=== PATIENT | female | born 1990 | race Asian ===

== ENCOUNTER → 2018-05-30 | Outpatient (CLI) | payer SELFPAY ==
[~2018-05-30] MED LIST: IBUP60TA PO; MAPA500T2 PO; PREN29TA4 PO
== END ==
LOC: M LAB 11:48
PROVIDERS: ATTEND Advanced Practice Midwife
DX: O02.1 Missed abortion (principal)

== ENCOUNTER → 2018-10-06 | Outpatient (CLI) | payer OTHER ==
[~2018-10-06] MED LIST changes: +IBUP600T42 PO; -IBUP60TA PO
== END ==
LOC: M LAB 12:13
PROVIDERS: ATTEND Advanced Practice Midwife
DX: O20.0 Threatened abortion (principal); Z3A.00 Weeks of gestation of pregnancy not specified

== ENCOUNTER → 2018-10-08 | Outpatient (CLI) | payer OTHER | LOC: M LAB 12:22 | PROVIDERS: ATTEND Advanced Practice Midwife | DX: O20.0 Threatened abortion (principal) ==

== ENCOUNTER → 2018-11-02 | Outpatient (CLI) | payer OTHER | LOC: M LAB 13:15 | PROVIDERS: ATTEND Advanced Practice Midwife | DX: O03.9 Complete or unspecified spontaneous abortion without complication (principal) ==

== ENCOUNTER → 2018-11-13 | Outpatient (CLI) | payer OTHER | LOC: M LAB 14:35 | PROVIDERS: ATTEND Advanced Practice Midwife | DX: O03.9 Complete or unspecified spontaneous abortion without complication (principal) ==

== ENCOUNTER → 2018-11-16 | Outpatient (CLI) | payer OTHER ==
[2018-11-16 17:44] LABS: FREE T4 1.09 NG/DL (0.76-1.46); THYROID STIMULATING HORMONE 0.802 uIU/ML (0.358-3.740)
[2018-11-21 11:16] LABS: PTT LUPUS TYPE ANTICOAG SCREEN 0.8 (0-1.2)
[2018-11-22 14:34] LABS: ANTI DS-DNA AB <1:10 titer (.); ANTI THROMBIN 3 FUNCT ACTIVITY 114 % (75-135); CARDIOLIPIN IGA ANTIBODY <9 APL U/mL (0-11); CARDIOLIPIN IGG ANTIBODY <9 GPL U/mL (0-14); CARDIOLIPIN IGM ANTIBODY <9 MPL U/mL (0-12); PROTEIN C FUNCTIONAL ACTIVITY 132 % (73-180); PROTEIN S FUNCTIONAL ACTIVITY 82 % (63-140); SSA SJOGRENS A <0.2 AI (0.0-0.9); SSB SJOGRENS B <0.2 AI (0.0-0.9)
== END ==
LOC: M SMT 15:49
PROVIDERS: ATTEND Obstetrics & Gynecology
DX: N96 Recurrent pregnancy loss (principal)

== ENCOUNTER → 2019-08-02 | Outpatient (REF) | payer OTHER ==
[~2019-08-02] MED LIST changes: +PROG1CAP9 PO
[2019-08-02 12:37] LABS: HEMATOCRIT 38.5 % (36.0-47.0); HEMOGLOBIN 12.8 g/dl (12.0-15.5); MEAN CORPUSCULAR HEMOGLOBIN 31.9 pg (27.0-33.0); MEAN CORPUSCULAR HGB CONC 33.2 g/dl (32.0-36.5); PLATELET COUNT, AUTOMATED 224 10^3/uL (150-450); RED BLOOD COUNT 4.01 10^6/uL (4.00-5.40); WHITE BLOOD COUNT 6.7 10^3/uL (4.0-10.0)
[2019-08-02 14:06] LABS: CHLAMYDIA DNA AMPLIFICATION NEGATIVE (NEGATIVE); GC DNA AMPLIFICATION NEGATIVE (NEGATIVE)
[2019-08-03 09:10] LABS: HEPATITIS B SURFACE ANTIGEN NEGATIVE (NEGATIVE); HEPATITIS C VIRUS ABY INDEX < 0.0 INDEX (<0.8); HIV 1&2 SCREEN CENTAUR NEGATIVE (NEGATIVE); RUBELLA IgG QUALITATIVE IMMUNE (IMMUNE)
== END ==
LOC: M PLALAB 09:54
PROVIDERS: ATTEND Specialist
DX: Z34.81 Encounter for supervision of other normal pregnancy, first trimester (principal)

== ENCOUNTER 2019-08-03 09:34 | Emergency (ER) | payer OTHER ==
[~2019-08-03] VITALS: Ht 165.1 cm; Wt 70.6 kg
[~2019-08-03 09:34] MED LIST changes: -PROG1CAP9 PO
[2019-08-03] MEDS ORDERED: PROG1CAP9 PO (09:42)
[2019-08-03 10:22] LABS: BASO % 0.5 % (0.0-1.0); EOS # 0.1 10^3/uL (0.0-0.5); EOS % 0.8 % (0.0-3.0); HEMOGLOBIN 13.3 g/dl (12.0-15.5); LYMPH # 1.8 10^3/uL (1.5-5.0); LYMPH % 30.1 % (24.0-44.0); MEAN CORPUSCULAR HEMOGLOBIN 31.8 pg (27.0-33.0); MEAN CORPUSCULAR HGB CONC 33.3 g/dl (32.0-36.5); MEAN CORPUSCULAR VOLUME 95.7 fl (80.0-96.0); MONO # 0.5 10^3/uL (0.0-0.8); MONO % 8.1 % (0.0-5.0); NEUTROPHILS # 3.6 10^3/uL (1.5-8.5); NEUTROPHILS % 60.2 % (36.0-66.0); PLATELET COUNT, AUTOMATED 230 10^3/uL (150-450); RED BLOOD COUNT 4.18 10^6/uL (4.00-5.40); WHITE BLOOD COUNT 5.9 10^3/uL (4.0-10.0)
--- NOTE | 2019-08-03 10:47 | REP ---
First trimester obstetric ultrasound for vaginal bleeding: The the studies performed transabdominal, endovaginal and Doppler ultrasound assessment. There is an intrauterine gestational sac with a pole. The heart rate is 140 beats per minute. The gestational sac. [place]-rump length is a 0.8 cm. This corresponds to a gestational age of 6 weeks 6 days. MARLIN is 03/22/2020. Gestational age by LMP is 7 weeks 1 day/MARLIN 03/20/2020. There is a yolk sac measuring 5.9 mm in diameter. There is no subchorionic hematoma. The right ovary is normal size measuring 3.3 x 1.5 cm and is otherwise unremarkable. There is right ovarian vascular flow with the Doppler resistive index is 0.44. The left ovary is normal size measuring 3.3 by 2.0 cm. There is vascular flow in the left ovary with the Doppler resistive index of the parenchymal arteries measuring 0.45. Within the left ovary there is a hypoechoic area the measuring 1.7 x 1.4 cm, likely an hemorrhagic corpus luteum. Electronically Signed by Clayton Holden MD 08/03/2019 10:38 A
[2019-08-03 11:27] VITALS: BP 136/68
== END 2019-08-03 12:23 | disposition home or self-care (01) ==
LOC: M ED 09:34
DX: O20.8 Other hemorrhage in early pregnancy (principal); Z87.59 Personal history of other complications of pregnancy, childbirth and the puerperium; Z3A.01 Less than 8 weeks gestation of pregnancy; Z79.899 Other long term (current) drug therapy; Z79.890 Hormone replacement therapy

== ENCOUNTER → 2019-08-21 | Outpatient (CLI) | payer OTHER ==
[~2019-08-21] MED LIST changes: +PROG1CAP9 PO
--- NOTE | 2019-08-21 09:54 | REP ---
FIRST TRIMESTER ULTRASOUND: Real-time sonographic evaluation of the gravid uterus performed. There is a single living intrauterine gestation. Estimated gestational age is 9 weeks 5 days based on a crown-rump length of 29 mm, EDC 03/20/2020. Cervix is closed and measures 3.1 cm in length. heart rate 161 beats per minute. There is no subchorionic hemorrhage. No material adnexal region abnormality is seen.
== END ==
LOC: M WHC 08:47
PROVIDERS: ATTEND Advanced Practice Midwife
DX: O20.0 Threatened abortion (principal)

== ENCOUNTER → 2019-10-19 | Outpatient (CLI) | payer OTHER ==
--- NOTE | 2019-10-20 07:41 | REP ---
OBSTETRIC SONOGRAPHY: HISTORY: Supervision of , second trimester study for anatomy. FINDINGS: Scanning through the gravid uterus demonstrates a single living intrauterine gestation in a breech lie. motion is observed and heart rate is recorded at 130 beats per minute. An anterior grade 1 placenta is seen without of evidence of previa or abruption. Amniotic fluid is subjectively normal. Closed cervical length is 3.3 cm, viewed transabdominally. No extrauterine abnormalities observed. There is a small right choroid plexus cyst measuring 4 mm. No other anatomic abnormality. The following anatomic structures are identified and felt to be unremarkable: cranium, cavum, cerebellum and posterior fossa, nuchal fold, face and profile, four-chamber heart with left and right ventricular outflow tract views, diaphragm, left-sided stomach, abdominal wall cord insertion, three-vessel cord, kidneys and bladder, spine, upper and lower extremities. BIOMETRY CHART: BPD 3.9 cm = 17 weeks 6 days Head circumference 14.9 cm = 18 weeks 0 days Abdominal circumference 12.6 cm = 18 weeks 2 days Femur length 2.7 cm = 18 weeks 3 days Humeral length 2.7 cm = 18 weeks 5 days HC/AC ratio normal 1.18 Cephalic index normal 0.71 Estimated weight 231 grams, 0 pounds 8 ounces, 52nd percentile for 18 weeks 1 day. IMPRESSION: Viable single intrauterine gestation at 18 weeks 0 days by today's composite sonographic criteria. Expected gestational age estimate based on prior sonography is 18 weeks 1 day. MARLIN by prior sonography, March 20, 2020. Small choroid plexus cyst.
== END ==
LOC: M WHC 12:58
PROVIDERS: ATTEND Advanced Practice Midwife
DX: O09.292 Supervision of pregnancy with other poor reproductive or obstetric history, second trimester (principal)

== ENCOUNTER → 2019-11-15 | Outpatient (CLI) | payer OTHER ==
[~2019-11-15] MED LIST changes: +DIBU10OI TOP; +IBUP80TA PO; +PRENCHW PO
== END ==
LOC: M PLALAB 13:45
PROVIDERS: ATTEND Advanced Practice Midwife
DX: O28.3 Abnormal ultrasonic finding on antenatal screening of mother (principal)

== ENCOUNTER → 2019-12-21 | Outpatient (CLI) | payer OTHER | LOC: M LAB 07:22 | PROVIDERS: ATTEND Advanced Practice Midwife | DX: O99.810 Abnormal glucose complicating pregnancy (principal); Z3A.00 Weeks of gestation of pregnancy not specified ==

== ENCOUNTER 2020-02-21 07:19 | Inpatient (IN) | payer OTHER ==
[~2020-02-21] VITALS: Ht 165.1 cm; Wt 75.6 kg
[2020-02-21] VITALS (17 sets, daily range): BP systolic 98–128; BP diastolic 50–74
[~2020-02-21 07:19] MED LIST changes: -DIBU10OI TOP; -IBUP80TA PO; -PRENCHW PO
[2020-02-21] MEDS ORDERED: OXYTOCIN 30 UNITS IN 0.9% NaCl 500ML IV BAG (J2590) As Ordered ONE ×2 (07:49→08:53)
[2020-02-21] MEDS ORDERED: BUTORPHANOL 2 MG/ML INJ (J0595) As Ordered ONE (08:34)
[2020-02-21 08:40] LABS: CORD GAS ABE A -11.3; CORD GAS ABE V -8.3; CORD GAS HCO3 A 19.4 MEQ/L; CORD GAS HCO3 V 19.4 MEQ/L; CORD GAS O2 SAT A 71.2 %; CORD GAS PCO2 A 62.6 mmHg; CORD GAS PCO2 V 47.7 mmHg; CORD GAS PH A 7.108 UNITS; CORD GAS PH V 7.227 UNITS; CORD GAS PO2 A 36.5 mmHg; CORD GAS PO2 V 28.9 mmHg; CORD GAS SBC A 15.3 MEQ/L; CORD GAS SBC V 17.2 MEQ/L; CORD GAS TCO2 A 21.3 MEQ/L; CORD GAS TCO2 V 20.9 MEQ/L
[2020-02-21] MEDS ORDERED: BUTORPHANOL 2 MG/ML INJ (J0595) IV ONE (08:45)
[2020-02-21] MEDS ORDERED: AMPICILLIN SOD/SULBACTAM SOD 3 GM in D5W MINI-BAG PLUS 100 ML IV ONE (08:45)
[2020-02-21] MEDS ORDERED: METHYLERGONOVINE MALEATE 0.2 MG/ML VIAL (J2210) IM ONE (08:45)
[2020-02-21] MEDS ORDERED: METHYLERGONOVINE MALEATE 0.2 MG/ML VIAL (J2210) As Ordered ONE (08:46)
[2020-02-21] MEDS ORDERED: UNASYN 3 GM VIAL As Ordered ONE (08:49)
[2020-02-21] MEDS ORDERED: TRANEXAMIC ACID 100 MG/ML 10ML VIAL As Ordered ONE (09:12)
[2020-02-21] MEDS ORDERED: OXYTOCIN DRIP 30 UNITS in IV 1 EA IV SCH ×2 (09:30→10:00)
[2020-02-21] MEDS ORDERED: miSOPROStol 200 MCG TAB (S0191) PR ONE (09:30)
[2020-02-21 09:32] LABS: HEMATOCRIT 33.4 % (36.0-47.0); HEMOGLOBIN 11.1 g/dl (12.0-15.5); MEAN CORPUSCULAR HGB CONC 33.2 g/dl (32.0-36.5); MEAN CORPUSCULAR VOLUME 96.3 fl (80.0-96.0); PLATELET COUNT, AUTOMATED 205 10^3/uL (150-450); RED BLOOD COUNT 3.47 10^6/uL (4.00-5.40); WHITE BLOOD COUNT 11.4 10^3/uL (4.0-10.0)
[2020-02-21] MEDS ORDERED: OXYTOCIN DRIP 30 UNITS in IV 1 EA IV ONE ×2 (09:45→10:15)
[2020-02-21] MEDS ORDERED: TRANEXAMIC ACID INJection 1,000 MG in D5W 100 ML IV ONE (10:00)
[2020-02-21] MEDS ORDERED: DOCUSATE SODIUM 100 MG CAP PO PRN (10:00)
[2020-02-21] MEDS ORDERED: MEASLES,MUMPS,RUBELLA VACCINE INJ (MMR-II) (90707) SC SCH (10:00)
[2020-02-21] MEDS ORDERED: RHOGAM 300 MCG (1500 IU) INJ (J2790) IM SCH (10:00)
[2020-02-21] MEDS ORDERED: IBUPROFEN 600MG TAB PO PRN (10:00)
[2020-02-21] MEDS ORDERED: LIDOCAINE 1% MDV 20ML VIAL INFIL ONE (10:00)
[2020-02-21] MEDS ORDERED: DIBUCAINE 1% OINTMENT 30GM TOP PRN (10:00)
[2020-02-21] MEDS ORDERED: ACETAMINOPHEN TAB 650MG DOSE (2X325MG) PO PRN (10:00)
[2020-02-21] MEDS ORDERED: ACETAMINOPHEN 500 MG TAB PO PRN (10:00)
--- NOTE | 2020-02-21 12:18 | HPEPDOC ---
Obstetrical History & Physical General Date of Admission Feb 21, 2020 at 07:36 History of Present Illness Italia is a 29yo [id number] who presented at 36w0d by lmp c/w 6wk u/s who had PPROM at 0535 with onset of contractions about 30min after. She presented and quickly delivered at 0815, complicated by PPH (see delivery note for further details). Chief Complaint: Contractions, pre-term, LOF, pre-term Information Provided By: Patient Care Care: Good Care Dating Final EDC: Mar 20, 2020 Final EDC by: LMP, 1st trimester (US) Antepartum Course Diagnos(e)s benign course, history significant for prior 36wk delivery and prior delayed PPH 3 weeks after vaginal delivery requiring D&C and blood transfusion. Past Medical History Past Obstetrical History : Past Obstetrical History: Multigravida (07/27/15 36w6d PTL, PPH 3 weeks after from retained products with D&C and 1.5L EBL with blood transfusion. 2018 and 2018 sab) [employer] History: No pertinent history Past Medical History Medical History Benign Surgical History: Dilatation and Curettage Family History Significant Family History: No pertinent family hx Social History Marital Status: Family situation: Spouse/partner home Psychosocial History: No pertinent psych hx * Smoker: non-smoker Alcohol: Denies Drugs: denies Allergies Coded Allergies: No Known Allergies (Unverified , 07/27/15) Medications Scheduled Prenat 115/Iron Fum/Folic/Dss ( 19 Tablet) 1 Tab Tab, 1 TAB PO DAILY Progesterone, Micronized (Progesterone) 200 Mg Capsule, 1 CAP PO QPM Physical Examination Physical Examination GENERAL: Alert and oriented times three. ABDOMEN: Gravid and non-tender to touch. FETUS: Is vertex (VTX) by sterile vaginal examination (SVE) Vital Signs/I&O Vital Signs Date Time Temp Pulse Resp B/P (MAP) Pulse Ox O2 Delivery O2 Flow Rate FiO2 02/21/20 08:37 18 Laboratory Data 24H LABS Laboratory Tests 2 02/21/20 07:43: Serology Scanned Report Hepatitis B Testing 02/21/20 08:28: Cord Arterial Blood pH 7.108, Cord Arterial Blood PCO2 62.6, Cord Arterial Blood PO2 36.5, Cord Arterial Blood HCO3 19.4, Cord Arterial Blood Total CO2 21.3, Cord Arterial Blood Base Excess -11.3, Cord Arterial Base Excess (Standard 15.3, Cord Arterial Bld Oxygen Saturation 71.2, Cord Venous Blood pH 7.227, Cord Venous Blood PCO2 47.7, Cord Venous Blood PO2 28.9, Cord Venous Blood HCO3 19.4, Cord Venous Blood Total CO2 20.9, Cord Venous Base Excess (Actual) -8.3, Cord Venous Base Excess (Standard) 17.2, Cord Venous Blood Oxygen Saturation 64.0 02/21/20 09:13: Nucleated Red Blood Cells % (auto) 0.0, Syphilis Serology NONREACTIVE CBC/BMP Laboratory Tests 02/21/20 09:13 Pertinent Laboratoy Data Blood Type: A+ RBC Antibody Screen: Negative HIV: Negative Hepatitis B: Negative Hepatitis C: Negative Rapid Plasma Reagin: Nonreactive Rubella: Immune Chlamydia/Gonorrhea: Negative Group B Streptococcus: Unknown Glucose Tolerance Test: 145 Anatomy Ultrasound Ultrasound Date: October 19, 2019 Placenta Location: Anterior Normal Anatomy: Yes Placenta Previa: No Steroid Therapy Steroid Therapy: No Vaginal Examination Dilation: 7 cm Effacement: 90% Station: -1, 0 Cervical Consistency: Soft Cervical Position: Anterior Presentation: Cephalic presentation Assessment Heart Rate (FHR): 120 Variability: Moderate Accelerations: Positive Decelerations: None Tocometer Contractions: Yes Frequency: regular, every 2-5 min. Duration: greater than 60 seconds Strength: palpated as strong Assessment/Plan Assessment Italia is a 29yo [id number] who presented at 36w0d by lmp c/w 6wk u/s who had PPROM at 0535 with onset of contractions about 30min after. She presented and quickly delivered at 0815, complicated by PPH (see delivery note for further details). GBS unknown. /-1 per CNM on admission, patient was C/C/0 when I entered the room and delivery occurred before this note was written. Vitals wnl. Cat I FHRT prior to pushing. Benign course, history significant for prior 36wk delivery and prior delayed PPH 3 weeks after vaginal delivery requiring D&C and blood transfusion. Plan Admit and orient. Routine care CBC in the morning MD Cecilia Canchola Katrina D MD Feb 21, 2020 12:18
--- NOTE | 2020-02-21 12:39 | DNPDOC ---
[facility] Delivery Note Delivery Note DATE OF DELIVERY: 21 February 2020 PREDELIVERY DIAGNOSIS: 36w0d premature rupture of membranes and labor POST DELIVERY DIAGNOSIS: precipitous vaginal delivery and hemorrhage related to adherent placental fragments and resultant atony PROCEDURE: Spontaneous vaginal delivery MANAGEMENT AND BUDGET ANALYST: Dr. Sonali Brooks MD ANESTHESIA: 2mg IV stadol for manual sweeps, 1% lidocaine injection for perineal repair ESTIMATED BLOOD LOSS: 1000 mL. FINDINGS: 6 pound 3 ounce (2810g) male infant, Score 8/9, cord gases pHa 7.108 BE -11.3 and pHv 7.227 BE -8.3 DELIVERY SUMMARY: Italia is a 29yo [id number] s/p at 0815 on 02/21/20 after presenting in active labor having had PPROM at home at 0535 with onset of ctx after, delivering at 36w0d. She presented at 7cm and rapidly progressed to C/C/0 so was unable to receive epidural. Patient began pushing and there were heart rate decels down to the 70's, so she went to hands/knees position. At that point she began to effectively move the infant below 0 station, and she turned onto her back just before delivery. With Ritgen's maneuver and effective pushing, infant delivered OP, restituted ROP. Left anterior shoulder delivered followed by posterior shoulder and corpus. Spontaneous cry noted, placed on maternal abdomen. Cord clamped x2 after approximately 2 minutes and cut by FOB. Cord gases obtained. With fundal massage and traction on the cord, placenta delivered spontaneously and with 3 vessel cord centrally inserted. IV pitocin given per protocol. More uterine massage performed and fundus then firm at u-2cm with hemostasis noted initially. Inspection of perineum and vagina revealed a 2mll. Inspection of the placenta revealed a small part of a cotyledon that did not appear present, and with another uterine massage, patient continued to have gushing, so manual sweep was performed which was productive of bits of adherent placenta. I performed several more uterine sweeps to remove all of the remaining adherent placenta until the uterus was empty and endometrium felt gritty and uniform. TAUS was performed which showed only likely clot present in the uterus. At that point, patient's uterus became atonic and she was given 0.2mg IM methergine and 800mcg NE cytotec. Gloves changed. More uterine massage and sweep of lower uterine segment produced more clot with continued trickling- this happened several times. I ordered TXA 1g IV to be given, another bag of pitocin, and Unasyn 3g IV x1 for prophylaxis since she had multiple uterine sweeps. Stat CBC was performed and H/H at that point was 11.1/33.5. With further massage, the fundus and lower uterine segment eventually firmed, and bleeding became minimal. I then turned my attention to the perineal repair, and the 2mll was repaired with 3-0 vicryl in routine fashion with excellent reapproximation and total hem ostasis noted. Will repeat CBC in the am. Total EBL 1000ml. Discussed possibility of blood transfusion with patient based on labs/sx, and she is understanding. All counts correct x2. Patient and infant were doing well when I left the room. MD Cecilia Canchola Katrina D MD Feb 21, 2020 12:20
[2020-02-21] MEDS: IBUPROFEN 800 MG TAB PO PRN (13:59)
[2020-02-22 06:00] VITALS: BP 123/68
[2020-02-22 07:23] LABS: HEMATOCRIT 28.9 % (36.0-47.0); HEMOGLOBIN 9.5 g/dl (12.0-15.5); MEAN CORPUSCULAR HEMOGLOBIN 32.2 pg (27.0-33.0); MEAN CORPUSCULAR HGB CONC 32.9 g/dl (32.0-36.5); PLATELET COUNT, AUTOMATED 172 10^3/uL (150-450); RED BLOOD COUNT 2.95 10^6/uL (4.00-5.40); WHITE BLOOD COUNT 11.7 10^3/uL (4.0-10.0)
[2020-02-22] MEDS ORDERED: INFLUENZA QUADRIVALENT PF VACCINE 0.5ML SYRINGE IM ONE (09:00)
[2020-02-22] MEDS: PRENATAL VITAMINS CHEWABLE TABLET PO SCH (09:20)
--- NOTE | 2020-02-22 09:35 | IPNPDOC ---
Progress Note Date of Service: Feb 22, 2020 Day#: 1 Progress Note PPD 1 SUBJECT: Italia is a 29yo [id number] s/p at 0815 on 02/21/20 after presenting in active labor having had PPROM at home at 0535 with onset of ctx after, delivering at 36w0d. Delivery was complicated by PPH related to adherent placental fragments removed with resultant atony treated with multiple uterotonics, EBL 1000ml. She is doing well day # 1. She has been ambulating without lightheadedness/dizziness, voiding spontaneously without issue and tolerating regular diet. Breast feeding without issue. Reports lochia is like a normal period. No f/c/n/v/CP/SOB. OBJECTIVE: VITAL SIGNS: Within normal limits, afebrile. Alert and oriented times three. Abdomen: Fundus firm at U-2. Soft, NTTP. Extremities: no edema of BLE Labs: admission H/H: 11.1/33.4 PPD 1 H/H: 9.5/28.9 ASSESSMENT: Italia is a 29yo [id number] s/p at 0815 on 02/21/20 after presenting in active labor having had PPROM at home at 0535 with onset of ctx after, delivering at 36w0d. Delivery was complicated by PPH related to adherent placental fragments removed with resultant atony treated with multiple uterotonics, EBL 1000ml. She is doing well day # 1. Vitals within normal limits, afebrile, hemodynamically stable with no evidence of infection. PLAN: 1. Discharge to home today. 2. Tylenol and Motrin for pain. 3. Encourage breast feeding and ambulation. 4. undecided on contraception 5. Routine PP visit in 6 weeks in clinic. 6. Discussed return precautions at length. Sonali Brooks MD VS, I&O, 24H, Anna Vital Signs/I&O Vital Signs Date Time Temp Pulse Resp B/P (MAP) Pulse Ox O2 Delivery O2 Flow Rate FiO2 02/22/20 06:00 97.3 85 16 123/68 (86) 02/21/20 18:00 100 Room Air I&O- Last 24 Hours up to 6 AM 02/22/20 05:59 Intake Total 2210 ml Output Total 1850 ml Balance 360 ml Laboratory Data 24H LABS Laboratory Tests 2 02/22/20 06:59: Nucleated Red Blood Cells % (auto) 0.0 CBC/BMP Laboratory Tests 02/22/20 06:59 Sonali Brooks MD Feb 22, 2020 09:35
--- NOTE | 2020-02-22 09:40 | DS.PDOC ---
Discharge Summary General Date of Admission Feb 21, 2020 at 07:36 Date of Discharge Feb 22, 2020 Discharge Summary PROCEDURES PERFORMED DURING STAY: spontaneous vaginal delivery ADMITTING DIAGNOSES: 1. Active pre-term labor at 36 weeks DISCHARGE DIAGNOSES: 1. Active pre-term labor at 36 weeks 2. hemorrhage related to adherent placental fragments removed with resultant atony treated with multiple uterotonics, EBL 1000ml COMPLICATIONS/CHIEF COMPLAINT: Srom, pre-term labor. HISTORY OF PRESENT ILLNESS/HOSPITAL COURSE: Italia is a 29yo [id number] s/p at 0815 on 02/21/20 after presenting in active labor having had PPROM at home at 0535 with onset of ctx after, delivering at 36w0d. Delivery was complicated by PPH related to adherent placental fragments removed with resultant atony treated with multiple uterotonics, EBL 1000ml. She is doing well day # 1. At time of di scharge, vitals were within normal limits, afebrile, hemodynamically stable with no evidence of infection. DISCHARGE MEDICATIONS: Please see below. ALLERGIES: Please see below. PHYSICAL EXAMINATION ON DISCHARGE: VITAL SIGNS: Within normal limits, afebrile. Alert and oriented times three. Abdomen: Fundus firm at U-2. Soft, NTTP. Extremities: no edema of BLE LABORATORY DATA: Please see below. admission H/H: 11.1/33.4 PPD 1 H/H: 9.5/28.9 ACTIVITY: As tolerated, vaginal rest 6 weeks DIET: regular DISPOSITION: home DISCHARGE INSTRUCTIONS: 1. Discharge to home today. 2. Tylenol and Motrin for pain. 3. Encourage breast feeding and ambulation. 4. undecided on contraception 5. Routine PP visit in 6 weeks in clinic. 6. Discussed return precautions at length. DISCHARGE CONDITION: Stable TIME SPENT ON DISCHARGE: Greater than 20 minutes. Sonali Brooks MD Vital Signs/I&Os Vital Signs Date Time Temp Pulse Resp B/P (MAP) Pulse Ox O2 Delivery O2 Flow Rate FiO2 02/22/20 06:00 97.3 85 16 123/68 (86) 02/21/20 18:00 100 Room Air I&O- Last 24 Hours up to 6 AM 02/22/20 05:59 Intake Total 2210 ml Output Total 1850 ml Balance 360 ml Laboratory Data Labs 24H Laboratory Tests 2 02/22/20 06:59: Nucleated Red Blood Cells % (auto) 0.0 CBC/BMP Laboratory Tests 02/22/20 06:59 Discharge Medications Scheduled Prenat 115/Iron Fum/Folic/Dss ( 19 Tablet) 1 Tab Tab, 1 TAB PO DAILY, (Reported) Allergies Coded Allergies: No Known Allergies (Unverified , 02/21/20) Sonali Brooks MD Feb 22, 2020 09:40
[2020-02-22] MEDS ORDERED: DIBU10OI TOP (09:45)
[2020-02-22] MEDS ORDERED: IBUP80TA PO (09:45)
[2020-02-22] MEDS ORDERED: PRENCHW PO (10:14)
[2020-02-22] MEDS: IBUPROFEN 800 MG TAB PO PRN (17:59)
[2020-02-22 18:00] VITALS: BP 118/73
[2020-02-23 06:00] VITALS: BP 104/53
[2020-02-23] MEDS ORDERED: MOM 30ML SUSPENSION UDC PO ONE (08:00)
[2020-02-23] MEDS: PRENATAL VITAMINS CHEWABLE TABLET PO SCH (08:04)
== END 2020-02-23 12:30 | disposition home or self-care (01) | DRG 541 ==
LOC: M LDO 07:19 → M LDI 07:36 → M OBS 13:33
PROVIDERS: ADMIT Advanced Practice Midwife; ATTEND Obstetrics & Gynecology
PROC: 10E0XZZ Delivery of Products of Conception, External Approach (ICD-10-PCS; principal; 2020-02-21)
PROC: 0KQM0ZZ Repair Perineum Muscle, Open Approach (ICD-10-PCS; 2020-02-21)
PROC: 10D17Z9 Manual Extraction of Products of Conception, Retained, Via Natural or Artificial Opening (ICD-10-PCS; 2020-02-21)
DX: O42.013 Preterm premature rupture of membranes, onset of labor within 24 hours of rupture, third trimester (principal); O72.1 Other immediate postpartum hemorrhage; Z3A.36 36 weeks gestation of pregnancy; O62.3 Precipitate labor; O76 Abnormality in fetal heart rate and rhythm complicating labor and delivery; O70.1 Second degree perineal laceration during delivery; Z37.0 Single live birth

== ENCOUNTER → 2022-04-14 | Outpatient (CLI) | payer SELFPAY ==
[~2022-04-14] MED LIST changes: +DIBU28OI2 TOP; +IBUP80TA PO; +PRENCHW PO
[2022-04-14 11:06] LABS: ALBUMIN 4.3 G/DL (3.2-5.2); ALT/SGPT 19 U/L (7.0-40); BILIRUBIN,TOTAL 0.7 MG/DL (0.3-1.2); BLOOD UREA NITROGEN 12 MG/DL (9-23); CALCIUM LEVEL 8.8 MG/DL (8.5-10.1); CARBON DIOXIDE LEVEL 28 MMOL/L (20-31); CHLORIDE LEVEL 104 MMOL/L (98-107); CREATININE FOR GFR 0.58 MG/DL (0.55-1.30); GLOMERULAR FILTRATION RATE > 60.0 (>60); GLUCOSE, FASTING 107 MG/DL (60-100); POTASSIUM SERUM 4.1 MMOL/L (3.5-5.1); PROLACTIN 21.59 NG/ML; SODIUM LEVEL 140 MMOL/L (136-145); THYROID STIMULATING HORMONE 1.341 uIU/ML (0.55-4.78); TOTAL PROTEIN 7.5 G/DL (5.7-8.2)
== END ==
LOC: M PLALAB 08:05
PROVIDERS: ATTEND Nurse Practitioner Family
DX: O92.6 Galactorrhea (principal)

== ENCOUNTER → 2022-04-27 | Outpatient (CLI) | payer SELFPAY | LOC: M WHC 08:48 | PROVIDERS: ATTEND Nurse Practitioner Family | DX: N64.4 Mastodynia (principal) ==